=== PATIENT | female | born 1985 | race Caucasian/White ===

== ENCOUNTER 2019-07-20 10:05 | Emergency (ER) | payer BC, OTHER ==
[2019-07-20 13:11] VITALS: BP 165/95
--- NOTE | 2019-07-20 13:19 | UC ---
Ear Complaint HPI - HPI Summary HPI Summary: 34-year-old woman comes in with a chief complaint of right ear pain. Reports she's had pain in the right ear for about a month. She has yellow and green rhinorrhea. She's tried heating pads which did seem to help very much. She's not is swimmer. She is 6 months . No fevers or chills. No rash. Denies any dental pain or infection. No difficulty breathing or swallowing. - History of Current Complaint Chief Complaint: UCEar Stated Complaint: EAR PROBLEM Time Seen by Provider: 07/20/19 13:09 Hx Last Menstrual Period: 02/18/15 Pain Intensity: 6 - Allergies/Home Medications Allergies/Adverse Reactions: Allergies Allergy/AdvReac Type Severity Reaction Status Date / Time No Known Allergies Allergy Verified 07/20/19 13:08 Home Medications: Home Medications DULoxetine CAP* [Cymbalta CAP*] 60 mg PO QAM 04/03/14 [History Confirmed ] Amoxicillin/Clavulanate TAB* [Augmentin TAB 875*] 875 mg PO BID #20 tab [Rx] Insulin Glargine,Hum.rec.anlog [Lantus 100 units/ml 10 ml VIAL (*)] 50 mg SUBCUT BEDTIME 07/20/19 [History Confirmed 07/20/19] Labetalol TAB* [Trandate TAB*] 300 mg PO BID 07/20/19 [History Confirmed ] Labetalol TAB* [Trandate TAB*] 600 mg PO BEDTIME 07/20/19 [History Confirmed ] Omeprazole CAP (NF) [Prilosec CAP* 20 MG] 40 mg PO DAILY 07/20/19 [History Confirmed 07/20/19] PMH/Surg Hx/FS Hx/Imm Hx Previously Healthy: Yes - Surgical History Surgical History: Yes Surgery Procedure, Year, and Place: Cholecystectomy 2005 [facility]. LUMBAR discectomy 07/10/14 - Family History Known Family History: Positive: Non-Contributory - Social History Alcohol Use: None Substance Use Type: None Substance Use Comment - Amount & Last Used: NORMALLY DAILY BUT NONE IN THE LAST 2 WEEKS Smoking Status (MU): Former Smoker Type: Cigarettes Amount Used/How Often: 1/2ppd Length of Time of Smoking/Using Tobacco: 10 Have You Smoked in the Last Year: Yes When Did the Patient Quit Smoking/Using Tobacco: 1/2 PACK PER DAY Review of Systems All Other Systems Reviewed And Are Negative: Yes Constitutional: Positive: Negative Skin: Positive: Negative Eyes: Positive: Negative ENT: Positive: Ear Ache, Nasal Discharge, Sinus Congestion Respiratory: Positive: Negative Cardiovascular: Positive: Negative Gastrointestinal: Positive: Negative Motor: Positive: Negative Neurovascular: Positive: Negative Musculoskeletal: Positive: Negative Neurological/Mental Status: Positive: Negative Psychological: Positive: Negative Is Patient Immunocompromised?: No Physical Exam Triage Information Reviewed: Yes Appearance: Well-Appearing, No Pain Distress, Well-Nourished Vital Signs: Initial Vital Signs Temp 97.6 F 07/20/19 13:04 Pulse 95 07/20/19 13:04 Resp 20 07/20/19 13:04 BP 165/95 07/20/19 13:04 Pulse Ox 100 07/20/19 13:04 Vital Signs Reviewed: Yes Eye Exam: Normal Eyes: Positive: Conjunctiva Clear ENT: Positive: Pharynx normal, TMs normal, Other - There is no tenderness to palpation of the tragus or traction on the pinna. There is no rash on the side of the face. Parotid gland is nontender to palpation. No obvious dental cause. There is some mild tenderness at the angle of the jaw. Dental Exam: Normal Neck: Positive: Supple Respiratory: Positive: Lungs clear, Normal breath sounds, No respiratory distress Cardiovascular: Positive: RRR Musculoskeletal: Positive: Strength Intact, ROM Intact Neurological: Positive: Alert, Muscle Tone Normal Psychological: Positive: Age Appropriate Behavior Skin Exam: Normal Ear Complaint Course/Dx - Course Course Of Treatment: Given the patient has yellow-green rhinorrhea most likely cause of the ear pain is below up of pressure in the ear secondary to the sinusitis therefore we will treat with Augmentin. Patient will also continue symptomatic treatment. I recommended follow-up with ENT if not completely improved. - Differential Dx/Diagnosis Provider Diagnosis: Sinusitis, Right ear pain Discharge ED - Sign-Out/Discharge Documenting (check all that apply): Patient Departure All imaging exams completed and their final reports reviewed: No Studies - Discharge Plan Condition: Stable Disposition: HOME Prescriptions: Amoxicillin/Clavulanate TAB* [Augmentin TAB 875*] 875 mg PO BID #20 tab Patient Education Materials: Sinusitis (ED), Earache (ED) Referrals: Kota BANDA,Jaron Farmer [Primary Care Provider] - Dilip Armando MD [Medical Doctor] - Danny Auguste MD [Medical Doctor] - Additional Instructions: FOLLOW UP WITH ENT IF NOT COMPLETELY IMPROVED. GET REEVALUATED SOONER IF NOT IMPROVED OR WORSE OR ANY QUESTIONS OR CONCERNS. - Billing Disposition and Condition Condition: STABLE Disposition: Home
== END 2019-07-20 13:32 | disposition home or self-care (01) ==
LOC: UCEAST 10:05
DX: J32.9 Chronic sinusitis, unspecified (principal); H92.01 Otalgia, right ear; Z87.891 Personal history of nicotine dependence
CPT/HCPCS: 99202; G0463